=== PATIENT | female | born 1995 | race Caucasian/White ===

== ENCOUNTER 2017-05-03 12:17 | Emergency (ER) | payer OTHER ==
[~2017-05-03] VITALS: Ht 162.6 cm; Wt 82.8 kg
[2017-05-03] MEDS ORDERED: ULTRAM50 MG PO (13:56)
[2017-05-03 14:04] VITALS: BP 129/88
== END 2017-05-03 14:06 | disposition home or self-care (01) ==
LOC: EME 12:17
PROC: 0QSFXZZ Reposition Left Patella, External Approach (ICD-10-PCS; principal; 2017-05-03)
DX: S83.015A Lateral dislocation of left patella, initial encounter (principal); S72.412A Displaced unspecified condyle fracture of lower end of left femur, initial encounter for closed fracture; X50.0XXA Overexertion from strenuous movement or load, initial encounter
CPT/HCPCS: 73560; 73564; J3010; J7030